=== PATIENT | female | born 1980 | race Caucasian/White ===

== ENCOUNTER 2016-12-12 20:51 | Emergency (ER) | payer OTHER ==
[2016-12-12 20:58] VITALS: BP 122/74; PULSE 65; TEMP 97.7; BMI 24.5
--- NOTE | 2016-12-12 21:26 | PDOC ---
History of Present Illness - General Chief Complaint: Eye Problem Stated Complaint: RT EYE PROBLEM Time Seen by Provider: 12/12/16 21:00 History Source: Patient - History of Present Illness Timing/Duration: other Severity: mild Associated Symptoms: denies: cough, headaches, nausea/vomiting Past History - Past Medical History Allergies/Adverse Reactions: Allergies Allergy/AdvReac Type Severity Reaction Status Date / Time No Known Allergies Allergy Verified 12/12/16 20:55 Home Medications: Ambulatory Orders Hydrochlorothiazide [Hctz -] 25 mg PO DAILY 12/12/16 HTN: Yes - Psycho/Social/Smoking Cessation Hx Suicidal Ideation: No Smoking History: Unknown if ever smoked Review of Systems - Review of Systems HEENTM: No: Eye Pain, Blurred Vision Respiratory: No: Cough ABD/GI: No: Vomiting Neurological: No: Headache, Dizziness *Physical Exam - Vital Signs Last Vital Signs Temp Pulse Resp BP Pulse Ox 97.7 F 65 18 122/74 100 12/12/16 20:56 12/12/16 20:56 12/12/16 20:56 12/12/16 20:56 12/12/16 20:56 - Physical Exam General Appearance: Yes: Appropriately Dressed. No: Apparent Distress HEENT: positive: Normal Voice, Other (~3mm region of subconj hemorrhage to medial canthus of R eye) Neck: positive: Supple Respiratory/Chest: negative: Respiratory Distress Integumentary: positive: Dry, Warm Neurologic: positive: Fully Oriented, Alert, Normal Mood/Affect Medical Decision Making - Medical Decision Making 12/12/16 21:22 36 yo F, h/o HTN, well controlled on meds, here w/ sudden onset conjunctival erythema to R eye that pt noticed several hrs ago. No eye pain, visual changes, tearing, discharge or fb sensation. Denies trauma, contact lens use, recent coughing, vomiting or sick contacts. Pt well elinor and stable w/ ~3mm area of flat , red region to medial canthus of R eye, c/w subconjunctival hemorrhage. Information about diagnosis given to patient and reassured that symptoms usually resolve in 2-3 weeks without ocular sequelae and require no treatment. *DC/Admit/Observation/Transfer Diagnosis at time of Disposition: Conjunctival hemorrhage of right eye - Discharge Dispostion Disposition: HOME Condition at time of disposition: Good - Patient Instructions Printed Discharge Instructions: DI for Subconjunctival Hemorrhage
== END 2016-12-12 21:28 | disposition home or self-care (01) ==
LOC: JERFT 20:51
DX: H11.31 Conjunctival hemorrhage, right eye (principal)
CPT/HCPCS: 99281-25

== ENCOUNTER 2019-06-25 23:40 | Emergency (ER) | payer OTHER | END 2019-06-26 03:55 | disposition home or self-care (01) | LOC: JER 23:40 | PROC: 3E033GC Introduction of Other Therapeutic Substance into Peripheral Vein, Percutaneous Approach (ICD-10-PCS; principal; 2019-06-25) | PROC: 3E033GC Introduction of Other Therapeutic Substance into Peripheral Vein, Percutaneous Approach (ICD-10-PCS; 2019-06-25) | DX: N93.8 Other specified abnormal uterine and vaginal bleeding (principal) ==